=== PATIENT | male | born 1980 | race Hispanic/Latino ===

== ENCOUNTER 2021-06-03 22:00 | Observation (INO) | payer SELFPAY ==
[~2021-06-03] VITALS: Ht 160 cm; Wt 64.0 kg
--- NOTE | 2021-06-03 22:00 | NUR ---
PT TO ROOM VIA EMS STRETCHER FOR BEDSIDE TRIAGE
[2021-06-03 22:29] LABS: HEMATOCRIT 42.9 % (39.0-50.0); HEMOGLOBIN 14.4 g/dl (14.0-18.0); IMMATURE GRANULOCYTES 0.1 % (0.0-5.0); MEAN CELL VOLUME 87.6 fL CALC (80.0-100.0); MEAN CORPUSCULAR HGB 29.4 pG CALC (26.0-32.0); MEAN CORPUSCULAR HGB CONC 33.6 g/dL CAL (32.0-36.0); NEUT# 11.12 thou/uL (1.82-7.42); RED BLOOD COUNT 4.9 mill/uL (4.70-6.10)
--- NOTE | 2021-06-03 22:35 | NUR ---
PT STATES HE GOT UP THIS AM TO GO TO THE BATHROOM AND DEVELOPED PAIN IN SUPRAPUBIC AREA AND TRAVELS DOWN TO GROIN, DENIES SWELLING BUT UPON EXAM TESTICLES ARE SWOLLEN, PT DENIES N/V OR DIARRHEA AND DENIES INCREASED PAIN WITH DEFICATION/URINATION. AWARE OF NEED FOR URINE SPECIMEN AND URINAL PROVIDED
[2021-06-03 22:41] LABS: ALBUMIN 4.2 g/dL (3.2-5.0); ALKALINE PHOSPHATASE 79 u/l (38-126); ANION GAP 12 (6-22 (CALC)); BILIRUBIN, TOTAL 0.7 mg/dL (0.0-1.4); BUN 10 mg/dL (9-20); BUN/CREATININE RATIO 17 (12-20 (CALC)); CARBON DIOXIDE 29 mmol/l (22-30); CHLORIDE 102 mmol/l (95-108); CREATININE 0.6 mg/dL (0.7-1.3); GFR > 60 ML/MIN (>=60 (CALC)); GFR FOR AFR.AMER. > 60 ML/MIN (>=60 (CALC)); POTASSIUM 3.4 mmol/l (3.5-5.1); SGOT/AST 36 u/l (17-59); SODIUM 139 mmol/l (137-146); TOTAL PROTEIN 7.7 g/dL (6.3-8.2)
[2021-06-03 23:28] LABS: URINE BILIRUBIN - DIPSTICK NEGATIVE (NEGATIVE); URINE BLOOD DIPSTICK NEGATIVE (NEGATIVE); URINE COLOR YELLOW; URINE GLUCOSE - DIPSTICK NEGATIVE (NEGATIVE); URINE KETONE NEGATIVE (NEGATIVE); URINE LEUK ESTERASE NEGATIVE (NEGATIVE); URINE PH 7.5 (4.5-8.0); URINE PROTEIN - DIPSTICK NEGATIVE (NEG-TRACE); URINE UROBILINOGEN - DIPSTICK 0.2 E.U./dL (0.2)
[2021-06-03 23:34] LABS: URINE NITRITE - DIPSTICK NEGATIVE (Negative)
--- NOTE | 2021-06-03 23:39 | NUR ---
PT TO RADIOLOGY WITH US TECH, URINE COLLECTED AND SENT.
[2021-06-04] VITALS (9 sets, daily range): BP systolic 92–122; BP diastolic 45–76
--- NOTE | 2021-06-04 01:10 | NUR ---
PT RESTING AWARE OF AWAITING RESULTS, FAMILY MEMBER ATBEDSIDE, CALL MIKE WITHIN REACH
--- NOTE | 2021-06-04 02:26 | NUR ---
REPORT CALLED TO [place] PT AWARE OF PENDING SURGERY THIS AM. ROOM 270 ASSIGNED.
--- NOTE | 2021-06-04 02:50 | NUR ---
PT TRANSPORTED TO MED SURG VIA STRETCHER, BELONGINGS SENT WITH PATIENT.
--- NOTE | 2021-06-04 02:55 | NUR ---
PATIENT ADMITTED TO [facility] TO ROOM 270 VIA STRETCHER. PATIENT AMBULATED TO ROOM BED BY HIMSELF. ALERT. ABLE TO MAKE NEEDS KNOWN. DOES HAVE LANGUAGE BARRIER. ASSESSMENT COMPLETE AT THIS TIME. ORIENTED TO ROOM AND CALLIGHT. PATIENT NPO. DENIES PAIN AT THIS TIME. CALL LIGHT AND BELONGINGS WITHIN REACH.
--- NOTE | 2021-06-04 05:35 | NUR ---
OR STAFF MEMBER CAME TO FLOOR FOR PATIENT.
[2021-06-04] MEDS ORDERED: PERCOCET 5/325M1 TAB PO (07:27)
--- NOTE | 2021-06-04 08:17 | NUR ---
PT ARRIVED BACK TO [facility] TO 270 VIA STRETCHER ACCOMPAINED BY OR STAFF. PT AMBULATED TO BED. BEDSIDE REPORT RECIEVED. PT IS A/O X3 AND NIGERIEN SPEAKING ONLY. ASSESSMENT AND VITALS COMPLETED. BP 137/94, HR 83, O2 95% ON ROOM AIR. RESPIRATIONS ARE EVEN AND UNLABORED. LUNG SOUNDS ARE CLEAR. HEART RHYTHM NORMAL. BOWEL SOUNDS ARE ACTIVE. LBM 06/03/21. PULSES STRONG. SURGICAL SITE NOTED TO LEFT HIP WITH DERMABOND. PT COOMPLAINS OF 5/10 PAIN,, PT TO BE MEDICATED PER EMAR. #18G EMS TO LFA INFUSING WITH IVF PER ORDER, SITE REMAINS HEALTHY AND PATENT. SCDS IN PLACE. PT DENIES OF ANY ADDITIONAL NEEDS AT THIS TIME. ALL SAFETY PRECAUTIONS ARE IN PLACE WITH CALL LIGHT IN REACH. WILL CONTINUE TO MONITOR.
--- NOTE | 2021-06-04 11:55 | NUR ---
PT SLEEPING IN SEMI FOWLERS POSITION. REPSIRATIONS ARE EVEN AND UNLABORED ON ROOM AIR. #18G LAC INFUSING WITH IVF PER ORDER, SITE REMAINS HEALTHY AND PATENT. NO SIGNS OF ANY PAINS OR DISCOMFORTS. SCDS IN PLACE. ALL SAFETY PRECAUTIONS ARE IN PLACE WITH CALL LIGHT IN REACH. WILL CONTINUE TO MONITOR
--- NOTE | 2021-06-04 12:59 | NUR ---
MARTIN RN AT BEDSIDE TO ASSISTED WITH TRANSLATION OF DC INSTRUCTIONS AND NEW MEDICATIONS. PT VERBLAIZED UNDERSTANDING.IV REMOVED WITH CATH IN PLACE. WORK NOTE PROVIDED TO PT. TRANSPORTATION CALLED. WILL CONTINUE TO MONITOR
--- NOTE | 2021-06-04 14:40 | NUR ---
Discharge instructions given. Patient verbalizes understanding of same. Discharged in stable condition via Wheelchair to Home with *Other. All belongings sent with pt. PT DC HOME VIA WHEELCHAIR IN STABLE CONDITION ACCOMPAINED BY JOHN WITH ALL DC INSTRUCTIONS AND HOME BELONGINGS.
== END 2021-06-04 14:39 | disposition home or self-care (01) | DRG 352 ==
LOC: ED 22:00 → ED-I 06-04 02:10 → ED 06-04 02:18 → MS2 06-04 02:19
PROVIDERS: Emergency Medicine; ADMIT Surgery; ATTEND Surgery
PROC: 0YU60JZ Supplement Left Inguinal Region with Synthetic Substitute, Open Approach (ICD-10-PCS; principal; 2021-06-04)
DX: K40.30 Unilateral inguinal hernia, with obstruction, without gangrene, not specified as recurrent (principal); R19.03 Right lower quadrant abdominal swelling, mass and lump; Z20.822 Contact with and (suspected) exposure to COVID-19
CPT/HCPCS: C9290; G0378; J0131; Q9967